=== PATIENT | female | born 1995 | race Caucasian/White ===

== ENCOUNTER 2018-01-02 21:34 | Emergency (ER) | payer OTHER ==
[~2018-01-02] VITALS: Ht 149.9 cm; Wt 44.5 kg
[2018-01-02 21:44] VITALS: BP 124/74
== END 2018-01-02 23:39 | disposition home or self-care (01) ==
LOC: ER 21:34
DX: Z76.0 Encounter for issue of repeat prescription (principal); E10.8 Type 1 diabetes mellitus with unspecified complications; Z79.4 Long term (current) use of insulin
CPT/HCPCS: 82962; 99283; A4606; Z7610